=== PATIENT | female | born 1955 ===

== ENCOUNTER 2023-03-13 10:03 | Outpatient (CLI) | payer MEDICARE, OTHER, SELFPAY ==
[2023-03-13 10:14] VITALS: BMI 40.5
--- NOTE | 2023-03-13 11:26 | NMCV_ITS ---
NM victorina perf SPECT r/s* [id number] Amber Baumann Age: 67 Gender: F : 1955 Exam Date: 03/13/2023 11:26 Ordering Phys: Dejon Sanchez Technologist: AZAEL Flores Exam Location: [facility] Indications: ATHEROSCLEROTIC HEART DISEASE STRESS TEST Please see separate stress test report in [facility] for full findings IMAGE PROTOCOL Rest/Stress 1 Lexiscan Day Radiopharmaceutical Dose (mCi) Administration Site Administered by Rest: Tc-99m 11.0 IV AZAEL Rushing Sestamibi Stress:Tc-99m 33.0 IV AZAEL Rushing Sestamibi Rest: 13-Mar-2023 60 Discovery 630 Stress: 13-Mar-2023 30 Discovery 630 0.4mg Lexiscan. Images obtained in supine and prone position. SPECT RESULTS Technical Quality: Excellent Raw Data Analysis: Normal Image Corrections: No attenuation or motion correction applied Summed Stress Score: 3 Summed Rest Score: 0 Summed Difference Score: 3 PERFUSION FINDINGS There is a medium sized area of mostly reversible perfusion defect noted in the inferior and inferolateral zaman. 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 Attenuaton artifact can not be ruled out. FUNCTIONAL RESULTS (calculated via Gated SPECT) Stress Image LV EF (%): 67 Stress EDV (mL):131 TID: 0.97 Stress ESV (mL):43 FUNCTIONAL FINDINGS: There is normal left ventricular systolic function. IMPRESSIONS 1. Small sized area of prior infarct with significant kristal-infarct ischemia noted in left circumflex artery and RCA territory. Attenuation artifact cannot be ruled out. 2. LV systolic function is normal. Jairo Gandara MD (Electronically Signed) Final Date: 18 March 2023 18:15 S
--- NOTE | 2023-03-13 11:26 | ECG_ITS ---
[facility] Test Date: 2023-03-13 Pat Name: Amber Baumann Department: Room: Gender: Female Anthropologist: : 1955 Requested By: Dejon Sanchez Order Number: [id number] Richmond MD: Jairo Gandara M.D. Interpretive Statements NAME OF STUDY: LEXISCAN SESTAMIBI STRESS TEST INDICATION: [Chest Pain, ] Procedure: At the baseline, the blood pressure was 166/91 mmHg with a heart rate of 61 bpm. The electrocardiogram showed normal sinus rhythm, left axis deviation with normal ST and T's. The Lexiscan was infused over a period of 20 seconds. A total of 0.4 mg of Lexiscan was infused. The stress phase was continued for a total of 5 minutes. Heart rate was at the end of stress phase was 75 bpm. The EKG at the peak infusion revealed normal sinus rhythm with no significant ST-T wave changes. Sestamibi was injected 20 seconds after the Lexiscan infusion. Conclusion: 1. Normal EKG response to Lexiscan infusion 2. No Lexiscan induced chest pain or cardiac arrhythmia. 3. Normal blood pressure and heart rate response. 4. Sestamibi/sestamibi perfusion scan pending; see separate report. Electronically Signed On 04-08-2023 10:50:34 CDT by Jairo Gandara M.D. [email or web address]
[2023-03-13] MEDS: regadenoson 0.4 Mg/5 ml Syringe IVP (12:01)
[2023-03-13 12:16] VITALS: BP 160/79; PULSE 73
== END 2023-03-13 10:04 | disposition home or self-care (01) ==
LOC: CDL 10:06
PROVIDERS: PCP Family Medicine; Visit Provider Family Medicine
DX: R07.9 Chest pain, unspecified (principal); I25.10 Atherosclerotic heart disease of native coronary artery without angina pectoris; I25.2 Old myocardial infarction
CPT/HCPCS: 36415; 78452; 93017; 96374; A9500; J2785

== ENCOUNTER → 2023-04-08 10:33 | Outpatient (BNVA) | payer MEDICARE, OTHER, SELFPAY | PROVIDERS: PCP Family Medicine; Visit Provider Internal Medicine Cardiovascular Disease | DX: I47.1 Supraventricular tachycardia (principal) | CPT/HCPCS: 93005; 99204 ==